=== PATIENT | female | born 1990 | race Caucasian/White ===

== ENCOUNTER 2023-07-18 08:30 | Outpatient (REF) | payer OTHER, SELFPAY ==
--- NOTE | ~2023-07-18 | US_ITS ---
EXAMINATION: US DIAGNOSTIC ULTRASOUND BREAST, LEFT CLINICAL INFORMATION: 32-year-old female, complaining of non-painful lump left breast at the 1-2 o'clock axis x 1 week. States grape size . No history of trauma, or signs of infection. COMPARISON: None available. TECHNIQUE: Ultrasound of the left breast is performed with real-time isaac scale imaging and color Doppler. Attention was given to the area of palpable concern left breast upper outer quadrant. FINDINGS: At the 2:00 axis, 4 cm from the nipple, left breast, correlating with the palpable focus, there is an oval anechoic simple cyst measuring approximately 10 x 4 x 7 mm, with no internal echoes, good through transmission, and somewhat swollen appearing surrounding echogenic fat. This is a fairly classic appearance of early fat necrosis. The patient cannot remember a discrete injury but states she is clumsy . No additional abnormalities are identified in the upper outer quadrant of the left breast. No suspicious findings. Results were directly discussed with the patient at time of visit. US/US breast LT limited mamm only IMPRESSION: Area of probable fat necrosis left breast 2:00 axis correlating with the palpable focus of concern within the left breast. This is probably benign and six-month interval follow-up targeted left breast ultrasound is recommended to ensure stability and assess for expected normal evolution of fat necrosis. There are no suspicious findings present. ASSESSMENT: BI-RADS 3 - Probably benign finding(s) - 6 month follow-up suggested RECOMMENDATION: 6 Month F/U
== END 2023-07-18 08:31 | disposition home or self-care (01) ==
LOC: HO.MAMMO 08:30
PROVIDERS: PCP Nurse Practitioner Primary Care; Visit Provider Nurse Practitioner Primary Care
DX: N63.21 Unspecified lump in the left breast, upper outer quadrant (principal)
CPT/HCPCS: 76642

== ENCOUNTER → 2023-07-18 09:00 | Outpatient (BNV) | payer OTHER, SELFPAY | PROVIDERS: PCP Nurse Practitioner Primary Care; Visit Provider Radiology Diagnostic Radiology | DX: N63.21 Unspecified lump in the left breast, upper outer quadrant (principal) | CPT/HCPCS: 76642 ==